=== PATIENT | female | born 1995 ===

== ENCOUNTER 2021-05-04 07:48 | Inpatient (IN) | payer MEDICAID, OTHER ==
[~2021-05-04] VITALS: Ht 155 cm; Wt 62.0 kg
[2021-05-04 07:58] VITALS: BP 133/88
[2021-05-04] MEDS ORDERED: D5 LR IV SOLUTION 1,000 ML IV ONE (08:06)
[2021-05-04] MEDS ORDERED: OXYTOCIN PRE-MIX DRIP 500 ML IV ONE (08:06)
[2021-05-04 08:25] VITALS: BP 116/66
[2021-05-04] MEDS ORDERED: LIDOCAINE/EPI 2% 1:200,00 (XYLOCAINE) 10 ML VIAL ONE (08:27)
[2021-05-04 08:40] VITALS: BP 129/78
[2021-05-04] MEDS ORDERED: D5 LR IV SOLUTION 1,000 ML IV SCH (08:45)
[2021-05-04] MEDS ORDERED: PREN-142 PO (08:50)
[2021-05-04 08:51] LABS: BASOPHILS % (AUTO) 0 % (0-10); EOSINOPHILS # (AUTO) 0.1 10^3/uL (0.0-0.3); EOSINOPHILS % (AUTO) 1 % (0-10); HEMATOCRIT 37 % (35-52); HEMOGLOBIN 13.1 g/dL (11.5-16.0); LYMPHOCYTES # (AUTO) 1.6 10^3/uL (1.0-4.0); LYMPHOCYTES % (AUTO) 15 % (12-44); MEAN CORPUSCULAR HEMOGLOBIN 31 pg (25-34); MEAN CORPUSCULAR HGB CONC 36 g/dL (32-36); MEAN CORPUSCULAR VOLUME 87 fL (80-99); MEAN PLATELET VOLUME 11.7 fL (9.0-12.2); MONOCYTES # (AUTO) 0.5 10^3/uL (0.0-1.0); MONOCYTES % (AUTO) 5 % (0-12); NEUTROPHILS # (AUTO) 8.4 10^3/uL (1.8-7.8); NEUTROPHILS % (AUTO) 79 % (42-75); PLATELET COUNT 226 10^3/uL (130-400); WHITE BLOOD COUNT 10.6 10^3/uL (4.3-11.0)
--- NOTE | 2021-05-04 08:51 | History & Physical-OB ---
OB - Chief Complaint & HPI Date/Time Date of Admission: Date of Admission: May 04, 2021 at 08:44 Date seen by a Provider: May 04, 2021 Time Seen by a Provider: 08:15 Chief Complaint/History OB-Reason for Admission/Chief: Onset of Labor Hx : 2 Hx Para: 1 Expected Date of Delivery: May 18, 2021 Gestational Age in Weeks: 38 Gestational Age in Days: 0 History of Labs A+, antibody neg, RI. HIV/HepB/RPR NR. GC/chlamydia neg. 1 hour glucola nml. GBS neg. 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) Obstetrical Complications: None Medical Complications: None Obstetrical History Hx : 2 Hx Para: 1 Hx # Term Pregnancies: 1 Hx # Pregnancies: 0 Number of Living Children: 1 Hx Termination: No Hx Multiple Gestation: No Hx Ectopic : No Hx Stillbirth: No Hx Complication: No Hx Induced Hypertens: No Hx Maternal Gestational Diabet: No Hx Hemorrhage: No Delivery History Hx Dystocia: No Hx Forceps Assisted Delivery: No Hx Vacuum Extraction Assisted: No Hx Placenta Abnormality: No Hx Distress: No Hx Large For Gestational Age I: No Hx Small for Gestational Age I: No Hx Section: No Hx Vaginal Delivery Post C-Sec: No Hx Blood Disorders: No Adverse Rxn to Tranfusion: No Patient Past Medical History PMHx: Denies SurgHx: Denies Social History/Family History Alcohol Use: Denies Use Recreational Drug Use: No Smoking Cessation: Never smoker Immunizations Influenza Vaccine Up-to-Date: No; Not Current Tetanus Booster (TDap): Less than 5yrs (04/26/21) Rubella: immune RPR/VDRL: Negative GBS Status: Negative HBsAG: Negative OB - Admission Exam Physical Exam HEENT: NCAT Abdomen: Non tender Cervical Dilatation: 10cm Effacement: 100% Station: +2 Membranes: Intact OB - Assessment/Plan/Diagnosis Assessment Admission Dx Term intrauterine at 38 weeks gestation Spontaneous onset of active labor GBS negative Rubella immune Possible IUGR Admission Status: Inpatient Order (span 2 midnights) Reason for Inpatient Admission: Labor, delivery and course Plan Plan: Expectant Management KATHY MAYO MD May 04, 2021 08:51
[2021-05-04 08:55] VITALS: BP 127/61
--- NOTE | 2021-05-04 08:56 | OB Labor & Delivery Record ---
Vag Delivery Note Vag Delivery Note Date of Delivery: 05/04/21 Preoperative Diagnosis: Karolyn Vergara is a (25 /Para 2 / 1,Gestational Age (wks)38with 0 days Postoperative Diagnosis: Same Surgeon: KATHY MAYO Anesthesia: None Delivery Type: Findings: Viable female , apgars 9/9, weight 5#6 Lacerations: left periurethral, second degree perineal Intact placenta with 3 vessel cord. No nuchal cord, body cord or shoulder dystocia Estimated Blood Loss: 150 ml Complications: None Condition: Stable Description of Procedure: The patient is a 25 year old female who presented at complete cervical dilation. She was admitted and informed consent was obtained. Her labor course was remarkable for precipitous delivery. After rupture of a bulging bag, delivered essentially immediately. She was then set up for delivery. The infant's head was delivered atraumatically in the OA position. The shoulders and remainder of the infant's body were then d elivered without difficulty. Upon delivery, the infant was vigorous and placed on maternal abdomen. After a delay, the cord was doubly clamped and cut and the infant was handed off to the pediatric staff. An intact placenta with 3-vessel cord delivered via Mary and there was found to be minimal bleeding.~ Vigorous fundal massage was performed and the fundus was found to be firm. IV oxytocin was given. Examination of the vagina and perineum revealed a left perirurethral laceration that was hemostatic and well approximated, not requiring repair and a second degree perineal laceration repaired in the usual fashion with 3-0 vicryl rapide suture. Following the repair, sponge, instrument and needle counts were correct. Mom and baby were both in stable condition in the labor suite. Vitals - Labs Labs Laboratory Tests 05/04/21 08:11: White Blood Count 10.6, Red Blood Count 4.21, Hemoglobin 13.1, Hematocrit 37, Mean Corpuscular Volume 87, Mean Corpuscular Hemoglobin 31, Mean Corpuscular Hemoglobin Concent 36, Red Cell Distribution Width 12.7, Platelet Count 226, Mean Platelet Volume 11.7, Immature Granulocyte % (Auto) 1, Neutrophils (%) (Auto) 79H, Lymphocytes (%) (Auto) 15, Monocytes (%) (Auto) 5, Eosinophils (%) (Auto) 1, Basophils (%) (Auto) 0, Neutrophils # (Auto) 8.4H, Lymphocytes # (Auto) 1.6, Monocytes # (Auto) 0.5, Eosinophils # (Auto) 0.1, Basophils # (Auto) 0.0, Immature Granulocyte # (Auto) 0.1 KATHY MAYO MD May 04, 2021 08:56
[2021-05-04] MEDS ORDERED: OXYTOCIN PRE-MIX DRIP 500 ML IV SCH (09:30)
[2021-05-04] MEDS: DOCUSATE SODIUM 100 MG (COLACE) CAP PO SCH ×2 (09:30→21:04)
[2021-05-04] MEDS ORDERED: BENZOCAINE/MENTHOL (DERMOPLAST) 56 ML CAN TP PRN (09:30)
[2021-05-04] MEDS ORDERED: WITCH HAZEL(TUCKS) 40 EA JAR TOP PRN (09:30)
[2021-05-04] MEDS: IBUPROFEN 600 MG (MOTRIN) TAB PO SCH ×2 (10:49→17:46)
[2021-05-04] MEDS ORDERED: CATHETER FLUSH 10 ML SYR IV SCH ×2 (14:00)
[2021-05-04 14:04] VITALS: BP 91/52
[2021-05-04 21:01] VITALS: BP 100/58
[2021-05-05 00:16] VITALS: BP 82/50
[2021-05-05] MEDS: IBUPROFEN 600 MG (MOTRIN) TAB PO SCH ×5 (00:18→23:17)
[2021-05-05 04:03] VITALS: BP 103/56
[2021-05-05 06:57] LABS: BASOPHILS % (AUTO) 0 % (0-10); EOSINOPHILS # (AUTO) 0.1 10^3/uL (0.0-0.3); EOSINOPHILS % (AUTO) 1 % (0-10); HEMATOCRIT 35 % (35-52); HEMOGLOBIN 12.2 g/dL (11.5-16.0); LYMPHOCYTES # (AUTO) 2.4 10^3/uL (1.0-4.0); LYMPHOCYTES % (AUTO) 21 % (12-44); MEAN CORPUSCULAR HEMOGLOBIN 31 pg (25-34); MEAN CORPUSCULAR HGB CONC 35 g/dL (32-36); MEAN CORPUSCULAR VOLUME 89 fL (80-99); MEAN PLATELET VOLUME 11.9 fL (9.0-12.2); MONOCYTES # (AUTO) 0.7 10^3/uL (0.0-1.0); MONOCYTES % (AUTO) 6 % (0-12); NEUTROPHILS # (AUTO) 8.3 10^3/uL (1.8-7.8); NEUTROPHILS % (AUTO) 71 % (42-75); PLATELET COUNT 216 10^3/uL (130-400); WHITE BLOOD COUNT 11.7 10^3/uL (4.3-11.0)
[2021-05-05] MEDS: DOCUSATE SODIUM 100 MG (COLACE) CAP PO SCH ×2 (10:20→23:17)
[2021-05-05 18:09] VITALS: BP 106/54
--- NOTE | 2021-05-05 21:28 | Postpartum Progress Note ---
Note Note Day # 1 Subjective: Patient is without complaints. Ambulating, voiding. Tolerating a regular diet without nausea or vomiting. Normal lochia. Pain is well controlled with oral pain medications. Breast and Bottle feeding. Objective: Physical Exam: General - Alert and oriented, no apparent distress Abdomen - Soft, appropriately tender to palpation, non-distended, fundus firm at umbilicus Extremities - no edema, negative Michele's bilaterally Assessment: 25 yo G2 now P2 post- day # 1, status post uncomplicated precipitus vaginal delivery. Recovering well, hemodynamically stable Plan: Routine care. Encourage breast feeding. Encourage ambulation. Ferrous sulfate supplementation. Plan for discharge tomorrow with f.u with Juancho Vitals - Labs Vital Signs - I&O Vital Signs Date Time Temp Pulse Resp B/P (MAP) Pulse Ox O2 Delivery O2 Flow Rate FiO2 05/05/21 18:09 36.7 81 16 106/54 (71) 99 Room Air 05/05/21 04:03 36.7 61 16 103/56 (72) 97 Room Air 05/05/21 00:16 36.5 60 16 82/50 (61) 97 Room Air I & O 05/05/21 07:00 Intake Total 500 ml Balance 500 ml Labs Laboratory Tests 05/05/21 06:19: White Blood Count 11.7H, Red Blood Count 3.93, Hemoglobin 12.2, Hematocrit 35, Mean Corpuscular Volume 89, Mean Corpuscular Hemoglobin 31, Mean Corpuscular Hemoglobin Concent 35, Red Cell Distribution Width 13.0, Platelet Count 216, Mean Platelet Volume 11.9, Immature Granulocyte % (Auto) 1, Neutrophils (%) (Auto) 71, Lymphocytes (%) (Auto) 21, Monocytes (%) (Auto) 6, Eosinophils (%) (Auto) 1, Basophils (%) (Auto) 0, Neutrophils # (Auto) 8.3H, Lymphocytes # (Auto) 2.4, Monocytes # (Auto) 0.7, Eosinophils # (Auto) 0.1, Basophils # (Auto) 0.0, Immature Granulocyte # (Auto) 0.1 JAZMIN HERNANDEZ MD May 05, 2021 21:28
[2021-05-05 23:17] VITALS: BP 102/59
[2021-05-06] MEDS: IBUPROFEN 600 MG (MOTRIN) TAB PO SCH ×2 (06:07→12:33)
[2021-05-06 06:10] VITALS: BP 105/55
[2021-05-06 08:12] VITALS: BP 97/58
[2021-05-06] MEDS: DOCUSATE SODIUM 100 MG (COLACE) CAP PO SCH (10:14)
[2021-05-06] MEDS ORDERED: IBUP-844 PO (10:45)
--- NOTE | 2021-05-06 10:47 | Short Stay Summary ---
Discharge Summary Hospital Course Final Diagnosis: see hospital course Hospital Course Date of Admission: May 04, 2021 at 08:44 Admission Diagnosis : 1. at 38 week with spontaneous onset of labor Family Physician/Provider: [facility] Date of Discharge: 05/06/21 Discharge Diagnosis: 1. at 38 week with spontaneous onset of labor s/p precipitous on 05/04/21 2. L periurethral and 2nd degree perineal laceration repair Hospital Course: Routine course Labs and Pending Lab Test: Laboratory Tests 05/04/21 08:11: White Blood Count 10.6, Red Blood Count 4.21, Hemoglobin 13.1, Hematocrit 37, Mean Corpuscular Volume 87, Mean Corpuscular Hemoglobin 31, Mean Corpuscular Hemoglobin Concent 36, Red Cell Distribution Width 12.7, Platelet Count 226, Mean Platelet Volume 11.7, Immature Granulocyte % (Auto) 1, Neutrophils (%) (Auto) 79H, Lymphocytes (%) (Auto) 15, Monocytes (%) (Auto) 5, Eosinophils (%) (Auto) 1, Basophils (%) (Auto) 0, Neutrophils # (Auto) 8.4H, Lymphocytes # (Auto) 1.6, Monocytes # (Auto) 0.5, Eosinophils # (Auto) 0.1, Basophils # (Auto) 0.0, Immature Granulocyte # (Auto) 0.1 05/05/21 06:19: White Blood Count 11.7H, Red Blood Count 3.93, Hemoglobin 12.2, Hematocrit 35, Mean Corpuscular Volume 89, Mean Corpuscular Hemoglobin 31, Mean Corpuscular Hemoglobin Concent 35, Red Cell Distribution Width 13.0, Platelet Count 216, Mean Platelet Volume 11.9, Immature Granulocyte % (Auto) 1, Neutrophils (%) (Auto) 71, Lymphocytes (%) (Auto) 21, Monocytes (%) (Auto) 6, Eosinophils (%) (Auto) 1, Basophils (%) (Auto) 0, Neutrophils # (Auto) 8.3H, Lymphocytes # (Auto) 2.4, Monocytes # (Auto) 0.7, Eosinophils # (Auto) 0.1, Basophils # (Auto) 0.0, Immature Granulocyte # (Auto) 0.1 Home Meds Active Reported Vitamin Tablet ( Vit No.124/Iron/FA) 1 Each Tablet 1 Each PO Assessment/Pt Instructions Follow up with Dr. Dawkins in 6 weeks Discharge Instructions Discharge Diet: No Restrictions Discharge Physical Examination General Appearance: Alert, Oriented X3, Cooperative Psych/Mental Status: Mood NL Allergies: Coded Allergies: No Known Drug Allergies (Unverified , 05/04/21) Discharge Summary Date of Admission May 04, 2021 at 08:44 Date of Discharge JOVON JOHNSON DO May 06, 2021 10:47
[2021-05-06 12:45] VITALS: BP 97/58
== END 2021-05-06 12:45 | disposition home or self-care (01) | DRG 807 ==
LOC: WSo 07:48 → LDRP 07:49
PROVIDERS: ADMIT Family Medicine; ATTEND Family Medicine
PROC: 10E0XZZ Delivery of Products of Conception, External Approach (ICD-10-PCS; principal; 2021-05-04)
PROC: 0KQM0ZZ Repair Perineum Muscle, Open Approach (ICD-10-PCS; 2021-05-04)
PROC: 0UQMXZZ Repair Vulva, External Approach (ICD-10-PCS; 2021-05-04)
DX: O62.3 Precipitate labor (principal); Z37.0 Single live birth; Z3A.38 38 weeks gestation of pregnancy; O70.1 Second degree perineal laceration during delivery; O71.82 Other specified trauma to perineum and vulva
CPT/HCPCS: 36415; 85025; 86850; 86900; 86901; 99212

== ENCOUNTER 2022-03-14 08:28 | Emergency (ER) | payer MEDICAID ==
[~2022-03-14] VITALS: Ht 152.4 cm; Wt 56.6 kg
[~2022-03-14 08:28] MED LIST: IBUP-844 PO; PREN-142 PO
--- NOTE | 2022-03-14 08:59 | ED Cardiac General ---
History of Present Illness General Chief Complaint: Cardiac/General Problems Nursing Triage Note: PT AMB TO RM 6. PT STATES SHE HAS AN IMPLANTED HEART MONITOR AND WAS CALLED AND TOLD TO COME IN TO ER FOR FURTHER EVALUATION. DENIES PAIN. Source: patient, other (RN at [facility]) Exam Limitations: language barrier History of Present Illness Date Seen by Provider: Mar 14, 2022 Time Seen by Provider: 08:45 Initial Comments 26yo female comes to the ER at the request of her cardiology clinic in [place] (where she recently moved from). She is a poor historian, therefore I spoke with Marla Syed, RN in the [facility] in [place], [place]. [phone] ext [phone]. 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 Corporate Financial Analyst - Dr Cheatham. The patient did not follow up after ICD placement and the nurse states they did not know she moved permanently to [place]. Apparently her remote monitoring has issued notifications to the device clinic. She has been showing a "high RV lead impedance of >3000" and a significant amount of noise in the ventricular lead. She is having short "v-v" intervals. She has had 4 true nonsustained events of VT (<10 beats). She has not suffered a shock yet. Marla tells me that Karolyn has had cardiac cath recently with a normal ef and clean coronary arteries. She did confirm that Karolyn was discharged on no medications. Karolyn is currently verbalizing NO complaints. Timing/Duration: 1/2 hour Prior CP/Workup: other (pacer defib placement) NTG SL WAX ENGRAVER: No ASA po WAX ENGRAVER: No Associated Systoms: Denies Symptoms Allergies and Home Medications Allergies Coded Allergies: No Known Drug Allergies (Unverified , 05/04/21) Patient Home Medication List Home Medication List Reviewed: Yes Ibuprofen (Ibu) 600 Mg Tablet, 600 MG PO Q6HR PRN for CRAMPS Prescribed by: JOVON JOHNSON on 05/06/21 1045 Vit No.124/Iron/FA ( Vitamin Tablet) 1 Each Tablet, 1 EACH PO, (Reported) Entered as Reported by: KATHY MAYO on 05/04/21 0850 Review of Systems Review of Systems Constitutional: see HPI EENTM: No Symptoms Reported Respiratory: No Symptoms Reported Cardiovascular: No Symptoms Reported Gastrointestinal: No Symptoms Reported Musculoskeletal: no symptoms reported Skin: no symptoms reported Psychiatric/Neurological: No Symptoms Reported All Other Systems Reviewed Negative Unless Noted: Yes Past Mfrwqpa-Fenxpi-Oxplmg Hx Patient Social History Tobacco Use?: No Use of E-Cig and/or Vaping dev: No Substance use?: No Alcohol Use?: No Pt feels they are or have been: No Immunizations Up To Date Tetanus Booster (TDap): Less than 5yrs Past Medical History Adverse Reaction/Blood Tranf: No Physical Exam Vital Signs Vital Signs - First Documented 03/14/22 08:37 Pulse 80 Resp 18 B/P (MAP) 109/78 (88) Pulse Ox 100 O2 Delivery Room Air Capillary Refill : Less Than 3 Seconds Height, Weight, BMI Height: '" Weight: lbs. oz. kg; 24.00 BMI Method: General Appearance: No Apparent Distress, WD/WN HEENT: PERRL/EOMI Neck: Normal Inspection Respiratory: Lungs Clear, Normal Breath Sounds, No Accessory Muscle Use, No R espiratory Distress, Other (wound site to left upper chest looks good) Cardiovascular: Regular Rate, Rhythm, Other (occasional extra systoles heard) Gastrointestinal: Non Tender, Soft Extremity: Normal Capillary Refill, Normal Inspection, Normal Range of Motion, No Calf Tenderness Neurologic/Psychiatric: Alert, Oriented x3, No Motor/Sensory Deficits, Normal Mood/Affect Skin: Normal Color, Warm/Dry Progress/Results/Core Measures Results/Orders Lab Results Laboratory Tests Test 03/14/22 08:53 Range/Units White Blood Count 7.2 4.3-11.0 10^3/uL Red Blood Count 4.79 3.80-5.11 10^6/uL Hemoglobin 14.0 11.5-16.0 g/dL Hematocrit 40 35-52 % Mean Corpuscular Volume 83 80-99 fL Mean Corpuscular Hemoglobin 29 25-34 pg Mean Corpuscular Hemoglobin Concent 35 32-36 g/dL Red Cell Distribution Width 12.0 10.0-14.5 % Platelet Count 304 130-400 10^3/uL Mean Platelet Volume 10.8 9.0-12.2 fL Immature Granulocyte % (Auto) 0 % Neutrophils (%) (Auto) 58 42-75 % Lymphocytes (%) (Auto) 34 12-44 % Monocytes (%) (Auto) 6 0-12 % Eosinophils (%) (Auto) 2 0-10 % Basophils (%) (Auto) 0 0-10 % Neutrophils # (Auto) 4.2 1.8-7.8 10^3/uL Lymphocytes # (Auto) 2.4 1.0-4.0 10^3/uL Monocytes # (Auto) 0.4 0.0-1.0 10^3/uL Eosinophils # (Auto) 0.1 0.0-0.3 10^3/uL Basophils # (Auto) 0.0 0.0-0.1 10^3/uL Immature Granulocyte # (Auto) 0.0 0.0-0.1 10^3/uL Sodium Level 135 135-145 MMOL/L Potassium Level 3.2 L 3.6-5.0 MMOL/L Chloride Level 102 98-107 MMOL/L Carbon Dioxide Level 24 21-32 MMOL/L Anion Gap 9 5-14 MMOL/L Blood Urea Nitrogen 7 7-18 MG/DL Creatinine 0.72 0.60-1.30 MG/DL Estimat Glomerular Filtration Rate 119 BUN/Creatinine Ratio 10 Glucose Level 135 H 70-105 MG/DL Calcium Level 8.7 8.5-10.1 MG/DL Magnesium Level 2.1 1.6-2.4 MG/DL My Orders Orders - TERRA DUPREE MD Ed Iv/Invasive Line Start (03/14/22 08:50) Cbc With Automated Diff (03/14/22 08:50) Basic Metabolic Panel (03/14/22 08:50) Magnesium (03/14/22 08:50) Ekg Tracing (03/14/22 08:50) Chest 1 View, Ap/Pa Only (03/14/22 08:50) Vital Signs/I&O 03/14/22 08:37 Pulse 80 Resp 18 B/P (MAP) 109/78 (88) Pulse Ox 100 O2 Delivery Room Air Blood Pressure Mean: 88 Progress Progress Note #1: Time: 10:30 Progress Note Discussed with Dr Lopez at 1008. He states that the patient would need an quality assurance specialist - he recc transfer today as the impedance being greater than 300 would indicate lead malfunction and increase the probability of inappropriate shock. we do not have the capability to treat or fix her pacer/ICD.. [facility]. I spoke with [facility] - no cardiac bed availability at this time. At [address] Benites at [facility] - she indicated that she would need to speak with their quality assurance specialist and see if this warranted an emergent transfer. She will call me back. Progress Note #2: Time: 11:35 Progress Note Multiple phone calls were made to various facilities including [facility] who has no cardiac bed availability at this time, also [facility] I spoke with Dr. Bean who stated that when she talked to their publishing director Dr. Mccray, that this could wait for outpatient follow-up. I also spoke with Dr.Decorti JOSE who stated that she would need outpatient follow-up as soon as possible because the device may malfunction, not since correctly not shot correctly etc. I did speak with Dr. Hernández himself the publishing director at [facility] in [facility]. He indicated to me that yes she needed follow-up very quickly and that he would be happy to see her in clinic tomorrow. He recommended that the patient call his nurse Paula Caputo to schedule the appointment for tomorrow. I communicated all of this information to the patient. She initially indicated that she would not be able to go to clinic tomorrow however I a stressed the importance of follow-up as it could be a life-threatening situation. I told her that if her heart went into an abnormal rhythm and her device did not shock appropriately that she could from this. Her significant other is at the bedside and stated that he would make sure she got to clinic tomorrow. I will type up all of the discharge instructions very clearly so that she knows who to talk to and when to follow-up and where to follow-up. All questions were sought and answered. Initial ECG Impression Date: Mar 14, 2022 Initial ECG Impression Time: 08:59 Initial ECG Rate: 75 Initial ECG Rhythm: Normal Sinus Comment atrial Paced; frequent PVC Diagnostic Imaging Diagonstic Imaging: Xray Plain Films/CT/US/NM/MRI: chest Comments [facility]. [place], [place] NAME: KAROLYN FELTON [facility] REC#: [id number] PT STATUS: REG ER : 1995 PHYSICIAN: TERRA DUPREE MD ADMIT DATE: 03/14/22/ER Draft Date of Exam:03/14/22 CHEST 1 VIEW, AP/PA ONLY INDICATION: Respiratory distress FINDINGS: Heart size and configuration unremarkable. Cardiac conduction device present with its thickened ventricular lead more proximal than typically projecting. No pneumothorax. No free air beneath the diaphragm. No findings of lead fracture. IMPRESSION: No acute appearing cardiopulmonary abnormality. Dictated on workstation # [id number] Dict: 03/14/2233 Trans: 03/14/2240 [facility] [id number] Interpreted by: TWYLA CORREIA Electronically signed by: Departure Impression Primary Impression: Disorder of defibrillator function Qualified Codes: T82.198A - Other mechanical complication of other cardiac electronic device, initial encounter Disposition: 01 HOME, SELF-CARE Condition: Stable Departure-Patient Inst. Decision time for Depature: 11:38 Referrals: KATHY MAYO MD (PCP/Family) Primary Care Physician Patient Instructions: Automatic Cardioverter Defibrillator Implantation Add. Discharge Instructions: YOU NEED TO CALL [facility] IN [place] *TODAY* TO SCHEDULE A VISIT WITH THE HEART DOCTOR TOMORROW. SPEAK WITH : PAULA CAPUTO RN (THE NURSE) FOR DR. AVILEZ LET THEM KNOW WHEN YOU CALL THAT HE SAID HE WOULD SEE YOU IN HIS CLINIC TOMORROW 03-15-22. YOU ABSOLUTELY MUST MAKE THIS APPOINTMENT, BECAUSE YOUR DEVICE MAY NOT WORK RIGHT TO SHOCK YOUR HEART OUT OF AN ABNORMAL PATTERN. THIS COULD RESULT IN YOUR . IF YOU HAVE SUDDEN PAIN, SHORTNESS OF BREATH, IF THE DEVICE SHOCKS YOU BEFORE THEN, PLEASE COME BACK TO THE EMERGENCY DEPARTMENT. [facility] - DR AVILEZ [address] [address] [address] TERRA DUPREE MD Mar 14, 2022 08:59
[2022-03-14 09:02] LABS: BASOPHILS % (AUTO) 0 % (0-10); EOSINOPHILS # (AUTO) 0.1 10^3/uL (0.0-0.3); EOSINOPHILS % (AUTO) 2 % (0-10); HEMATOCRIT 40 % (35-52); LYMPHOCYTES # (AUTO) 2.4 10^3/uL (1.0-4.0); LYMPHOCYTES % (AUTO) 34 % (12-44); MEAN CORPUSCULAR HEMOGLOBIN 29 pg (25-34); MEAN CORPUSCULAR HGB CONC 35 g/dL (32-36); MEAN CORPUSCULAR VOLUME 83 fL (80-99); MEAN PLATELET VOLUME 10.8 fL (9.0-12.2); MONOCYTES # (AUTO) 0.4 10^3/uL (0.0-1.0); MONOCYTES % (AUTO) 6 % (0-12); NEUTROPHILS # (AUTO) 4.2 10^3/uL (1.8-7.8); NEUTROPHILS % (AUTO) 58 % (42-75); PLATELET COUNT 304 10^3/uL (130-400); WHITE BLOOD COUNT 7.2 10^3/uL (4.3-11.0)
[2022-03-14 09:17] LABS: POTASSIUM 3.2 MMOL/L (3.6-5.0)
[2022-03-14 09:18] LABS: CALCIUM 8.7 MG/DL (8.5-10.1)
[2022-03-14 09:22] LABS: CREATININE SERUM 0.72 MG/DL (0.60-1.30)
[2022-03-14 09:24] LABS: MAGNESIUM 2.1 MG/DL (1.6-2.4)
--- NOTE | 2022-03-14 09:40 | Diagnostic Imaging Report ---
INDICATION: Respiratory distress FINDINGS: Heart size and configuration unremarkable. Cardiac conduction device present with its thickened ventricular lead more proximal than typically projecting. No pneumothorax. No free air beneath the diaphragm. No findings of lead fracture. IMPRESSION: No acute appearing cardiopulmonary abnormality. Dictated by: Dictated on workstation # [id number]
[2022-03-14 11:54] VITALS: BP 105/70
== END 2022-03-14 11:54 | disposition home or self-care (01) ==
LOC: EDUNIT# 08:28 → ER 08:32
DX: T82.198A Other mechanical complication of other cardiac electronic device, initial encounter (principal)
CPT/HCPCS: 36415; 71045; 80048; 83735; 85025; 93005

== ENCOUNTER 2022-05-28 08:51 | Inpatient (IN) | payer BC, MEDICAID ==
[~2022-05-28] VITALS: Ht 160 cm; Wt 64.0 kg
[2022-05-28] MEDS ORDERED: ACETAMINOPHEN 500 MG TAB (TYLENOL) PO PRN (09:15)
[2022-05-28 09:17] LABS: BASOPHILS % (AUTO) 0 % (0-10); EOSINOPHILS % (AUTO) 0 % (0-10); HEMATOCRIT 40 % (35-52); HEMOGLOBIN 14.4 g/dL (11.5-16.0); LYMPHOCYTES # (AUTO) 0.8 10^3/uL (1.0-4.0); LYMPHOCYTES % (AUTO) 6 % (12-44); MEAN CORPUSCULAR HEMOGLOBIN 30 pg (25-34); MEAN CORPUSCULAR HGB CONC 36 g/dL (32-36); MEAN CORPUSCULAR VOLUME 83 fL (80-99); MEAN PLATELET VOLUME 11.1 fL (9.0-12.2); MONOCYTES # (AUTO) 0.7 10^3/uL (0.0-1.0); MONOCYTES % (AUTO) 5 % (0-12); NEUTROPHILS # (AUTO) 13.4 10^3/uL (1.8-7.8); NEUTROPHILS % (AUTO) 89 % (42-75); PLATELET COUNT 212 10^3/uL (130-400); WHITE BLOOD COUNT 15.1 10^3/uL (4.3-11.0)
[2022-05-28 09:34] LABS: CLARITY,URINE SL CLOUDY; COLOR,URINE YELLOW; GLUCOSE, URINE (UA) NEGATIVE (NEGATIVE); KETONES,URINE 1+ (NEGATIVE); LEUKOCYTE ESTERASE ,URINE 2+ (NEGATIVE); NITRITE,URINE NEGATIVE (NEGATIVE); PROTEIN,URINE TRACE (NEGATIVE)
[2022-05-28 09:35] LABS: ALBUMIN 4.3 GM/DL (3.2-4.5); CALCIUM 8.8 MG/DL (8.5-10.1); CREATININE SERUM 0.96 MG/DL (0.60-1.30); POTASSIUM 3.4 MMOL/L (3.6-5.0); TOTAL PROTEIN 8.8 GM/DL (6.4-8.2)
[2022-05-28 09:36] LABS: BAND NEUTROPHILS 2 %; LYMPHOCYTES % (MANUAL) 12 %; MONOCYTES % (MANUAL) 5 %; NEUTROPHILS % (MANUAL) 81 %; RBC MORPH NORMAL
[2022-05-28] MEDS: LACTATED RINGERS 1,000 ML IV SCH ×2 (09:43→11:08)
--- NOTE | 2022-05-28 09:44 | Diagnostic Imaging Report ---
INDICATION: Chills and shortness of air. TIME OF EXAM: 9:27 AM. COMPARISON: Correlation is made with prior chest of 03/14/2022. FINDINGS: Cardiac defibrillator remains in place. Heart size is normal. Lungs are clear. No infiltrates are detected. There is no effusion or pneumothorax. IMPRESSION: No acute cardiopulmonary process is detected. Dictated by: Dictated on workstation # [id number]
[2022-05-28 09:49] LABS: AMORPHOUS SEDIMENT,UR FEW AMOR URATES /LPF; BACTERIA,URINE MODERATE /HPF; BILIRUBIN,URINE NEGATIVE (NEGATIVE)
--- NOTE | 2022-05-28 10:15 | ED Cardiac General ---
History of Present Illness General Chief Complaint: Cardiac/General Problems Stated Complaint: HEART PALPITATIONS Nursing Triage Note: PT PRESENTS TO ED VIA POV FROM HOME WITH COMPLAINTS OF NOT FEELING WELL SINCE LAST NIGHT. PT REPORTS CHILLS, [place], INCREASED SOA. PT STATES SHE HAD 2 EPISODES OF CP THIS AM LASTING APROX 10 MIN. Source: patient, family Exam Limitations: no limitations History of Present Illness Date Seen by Provider: May 28, 2022 Time Seen by Provider: 08:50 Initial Comments 26-year-old female presents to the emergency department today for episodes of palpitations. She had 2 episodes this morning lasted about 5 to 10 minutes each. She has a complicated cardiac history with history of prolonged QT syndrome status post pacer, defibrillator placement for frequent episodes of ventricular tachycardia and syncope. She has not had any syncopal episodes but did feel lightheaded when she had her palpitations. Notably few months ago she was seen here and had high impedance in one of her leads. She follows with wire stretcher at [facility], Dr. Hernández apparently fix the problem without having to do any invasive surgery or lead changes. On arrival she is febrile though she endorses no recent illness. Allergies and Home Medications Allergies Coded Allergies: No Known Drug Allergies (Unverified , 05/04/21) Patient Home Medication List Home Medication List Reviewed: Yes Ibuprofen (Ibu) 600 Mg Tablet, 600 MG PO Q6HR PRN for CRAMPS Prescribed by: JOVON JOHNSON on 05/06/21 1045 Vit No.124/Iron/FA ( Vitamin Tablet) 1 Each Tablet, 1 EACH PO, (Reported) Entered as Reported by: KATHY MAYO on 05/04/21 0850 Review of Systems Review of Systems Constitutional: dizziness EENTM: No Symptoms Reported Respiratory: No Symptoms Reported Cardiovascular: Palpitations Gastrointestinal: No Symptoms Reported Genitourinary: No Symptoms Reported Musculoskeletal: no symptoms reported Skin: no symptoms reported Psychiatric/Neurological: No Symptoms Reported Endocrine: No Symptoms Reported Hematologic/Lymphatic: No Symptoms Reported Past Hmpsjrt-Zmuogs-Tmzolr Hx Patient Social History Tobacco Use?: No Substance use?: No Alcohol Use?: No Pt feels they are or have been: No Immunizations Up To Date Tetanus Booster (TDap): Less than 5yrs Past Medical History Surgery/Hospitalization HX: pacemaker Adverse Reaction/Blood Tranf: No Family Medical History Reviewed Nursing Family Hx No Pertinent Family Hx Physical Exam Vital Signs Vital Signs - First Documented 05/28/22 08:58 Temp 38.4 Pulse 123 Resp 20 B/P (MAP) 128/66 (86) Pulse Ox 97 Capillary Refill : Less Than 3 Seconds Height, Weight, BMI Height: '" Weight: lbs. oz. kg; 22.00 BMI Method: General Appearance: No Apparent Distress, WD/WN HEENT: PERRL/EOMI, Normal ENT Inspection, Pharynx Normal Neck: Normal Inspection, Non Tender, Supple Respiratory: Chest Non Tender, Lungs Clear, Normal Breath Sounds, No Accessory Muscle Use, No Respiratory Distress Cardiovascular: No Murmur, Normal Peripheral Pulses, Tachycardia Gastrointestinal: Normal Bowel Sounds, No Organomegaly, Non Tender, Soft Extremity: Normal Capillary Refill, Normal Inspection, Normal Range of Motion, Non Tender, No Calf Tenderness Neurologic/Psychiatric: Alert, Oriented x3, No Motor/Sensory Deficits Skin: Normal Color, Warm/Dry Lymphatic: No Adenopathy Focused Exam Lactate Level 05/28/22 09:07: Lactic Acid Level 1.55 Lactic Acid Level Laboratory Tests Test 05/28/22 09:07 Lactic Acid Level 1.55 MMOL/L (0.50-2.00) Progress/Results/Core Measures Results/Orders Lab Results Laboratory Tests Test 05/28/22 09:05 05/28/22 09:07 05/28/22 09:26 Range/Units Influenza Type A (RT-PCR) Not Detected Not Detecte Influenza Type B (RT-PCR) Not Detected Not Detecte SARS-CoV-2 RNA (RT-PCR) Detected H Not Detecte White Blood Count 15.1 H 4.3-11.0 10^3/uL Red Blood Count 4.83 3.80-5.11 10^6/uL Hemoglobin 14.4 11.5-16.0 g/dL Hematocrit 40 35-52 % Mean Corpuscular Volume 83 80-99 fL Mean Corpuscular Hemoglobin 30 25-34 pg Mean Corpuscular Hemoglobin Concent 36 32-36 g/dL Red Cell Distribution Width 12.3 10.0-14.5 % Platelet Count 212 130-400 10^3/uL Mean Platelet Volume 11.1 9.0-12.2 fL Immature Granulocyte % (Auto) 0 % Neutrophils (%) (Auto) 89 H 42-75 % Lymphocytes (%) (Auto) 6 L 12-44 % Monocytes (%) (Auto) 5 0-12 % Eosinophils (%) (Auto) 0 0-10 % Basophils (%) (Auto) 0 0-10 % Neutrophils # (Auto) 13.4 H 1.8-7.8 10^3/uL Lymphocytes # (Auto) 0.8 L 1.0-4.0 10^3/uL Monocytes # (Auto) 0.7 0.0-1.0 10^3/uL Eosinophils # (Auto) 0.0 0.0-0.3 10^3/uL Basophils # (Auto) 0.0 0.0-0.1 10^3/uL Immature Granulocyte # (Auto) 0.1 0.0-0.1 10^3/uL Neutrophils % (Manual) 81 % Lymphocytes % (Manual) 12 % Monocytes % (Manual) 5 % Band Neutrophils 2 % Blood Morphology Comment NORMAL Sodium Level 134 L 135-145 MMOL/L Potassium Level 3.4 L 3.6-5.0 MMOL/L Chloride Level 102 98-107 MMOL/L Carbon Dioxide Level 22 21-32 MMOL/L Anion Gap 10 5-14 MMOL/L Blood Urea Nitrogen 10 7-18 MG/DL Creatinine 0.96 0.60-1.30 MG/DL Estimat Glomerular Filtration Rate 84 BUN/Creatinine Ratio 10 Glucose Level 114 H 70-105 MG/DL Lactic Acid Level 1.55 0.50-2.00 MMOL/L Calcium Level 8.8 8.5-10.1 MG/DL Corrected Calcium 8.6 8.5-10.1 MG/DL Magnesium Level 2.0 1.6-2.4 MG/DL Total Bilirubin 1.0 0.1-1.0 MG/DL Aspartate Amino Transf (AST/SGOT) 21 5-34 U/L Alanine Aminotransferase (ALT/SGPT) 15 0-55 U/L Alkaline Phosphatase 82 40-136 U/L Total Protein 8.8 H 6.4-8.2 GM/DL Albumin 4.3 3.2-4.5 GM/DL Urine Color YELLOW Urine Clarity SL CLOUDY Urine pH 6.0 5-9 Urine Specific [place] 1.025 H 1.016-1.022 Urine Protein TRACE H NEGATIVE Urine Glucose (UA) NEGATIVE NEGATIVE Urine Ketones 1+ H NEGATIVE Urine Nitrite NEGATIVE NEGATIVE Urine Bilirubin NEGATIVE NEGATIVE Urine Urobilinogen 2.0 < = 1.0 MG/DL Urine Leukocyte Esterase 2+ H NEGATIVE Urine RBC (Auto) 3+ H NEGATIVE Urine RBC 10-25 H /HPF Urine WBC 10-25 H /HPF Urine Squamous Epithelial Cells 5-10 /HPF Urine Crystals PRESENT H /LPF Urine Amorphous Sediment FEW BRANDEN URATES H /LPF Urine Bacteria MODERATE H /HPF Urine Casts NONE /LPF Urine Mucus SMALL H /LPF Urine Culture Indicated YES Urine Test NEGATIVE NEGATIVE My Orders Orders - JANINE PRIDE DO Cbc With Automated Diff (05/28/22 09:04) Comprehensive Metabolic Panel (05/28/22 09:04) Blood Culture (05/28/22 09:04) Urinalysis (05/28/22 09:04) Chest 1 View, Ap/Pa Only (05/28/22 09:04) Acetaminophen Tablet (Tylenol Tablet) (05/28/22 09:15) Ed Iv/Invasive Line Start (05/28/22 09:04) Lactic Acid Analyzer (05/28/22 09:04) Influenza A And B By Pcr (05/28/22 09:04) Covid 19 Inhouse Test (05/28/22 09:04) Magnesium (05/28/22 09:04) Lactated Ringers (Lr 1000 Ml Iv Solution (05/28/22 09:15) Manual Differential (05/28/22 09:07) Urine Culture (05/28/22 09:26) Ceftriaxone 1 Gm Pre-Mix (Rocephin 1 Gm (05/28/22 10:30) Ed Admission (Communication) (05/28/22 13:51) Medications Given in ED Vital Signs/I&O 05/28/22 08:58 Temp 38.4 Pulse 123 Resp 20 B/P (MAP) 128/66 (86) Pulse Ox 97 Blood Pressure Mean: 86 Departure Communication (Admissions) Patient is initially tachycardic, improved with IV fluid and control for fever. She did have positive for COVID. We interrogated her pacemaker and she had received 3 different corrections. She had 3 episodes of overdrive pacing and 1 defibrillation. He had a [employer] rep, and evaluate for pacemaker. Ultimately it was determined that her ventricular lead has dislodged and is now in her atrium. It is likely providing corrections based on an atrial rate. Review of tracings from her device shows there were no true ventricular dysrhythmias and it was cramping based on an atrial rhythm. With that the rapid shot off her ventricular lead at present. 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 With that is likely not safe to send her home for follow-up. I spoke with cardiology, Dr. Lucas at [facility] who spoke with Dr. Hernández. They attempted to get her transferred there however they are at capacity. He requests we admit her here observation for V. fib and V. tach until they can get a bed at which time she can be transferred there for new device I spoke with Dr. Honeycutt who is in agreement. I spoke with Dr. Mayo who accepts the patient in admission. Impression Primary Impression: Disorder of defibrillator function Qualified Codes: T82.198A - Other mechanical complication of other cardiac e lectronic device, initial encounter Additional Impression: COVID-19 Disposition: 09 ADMITTED INPATIENT Condition: Stable Admissions Decision to Admit Reason: Admit from ER (General) Departure-Patient Inst. Referrals: KATHY MAYO MD (PCP/Family) Primary Care Physician JANINE PRIDE DO May 28, 2022 10:15
[2022-05-28] MEDS ORDERED: cefTRIAXone 1 GM PRE-MIX 50 ML IV ONE (10:30)
[2022-05-28] MEDS ORDERED: NIRMATRELVIR/RITONAVIR (PAXLOVID) TABLET PO SCH ×2 (14:45→16:00)
[2022-05-28 15:16] VITALS: BP 83/59
[2022-05-28] MEDS: NS IV 1000 ML 1,000 ML IV SCH ×2 (16:42→23:51)
[2022-05-28 16:58] VITALS: BP 86/62
[2022-05-28] MEDS: NIRMATRELVIR/RITONAVIR (PAXLOVID) TABLET PO SCH (17:31)
[2022-05-28 19:49] VITALS: BP 100/68
[2022-05-28] MEDS ORDERED: IBUPROFEN 600 MG (MOTRIN) TAB PO PRN (20:00)
[2022-05-28] MEDS ORDERED: ACETAMINOPHEN 500 MG TAB (TYLENOL) ONE (21:11)
[2022-05-28] MEDS: ACETAMINOPHEN 500 MG TAB (TYLENOL) PO PRN (21:27)
[2022-05-28 23:45] VITALS: BP 78/50
[2022-05-28 23:52] VITALS: BP 90/53
[2022-05-29 03:30] VITALS: BP 103/69
[2022-05-29 07:01] LABS: HEMATOCRIT 35 % (35-52); HEMOGLOBIN 12.2 g/dL (11.5-16.0); MEAN CORPUSCULAR HEMOGLOBIN 30 pg (25-34); MEAN CORPUSCULAR HGB CONC 35 g/dL (32-36); MEAN CORPUSCULAR VOLUME 84 fL (80-99); MEAN PLATELET VOLUME 11.2 fL (9.0-12.2); PLATELET COUNT 158 10^3/uL (130-400); WHITE BLOOD COUNT 9.6 10^3/uL (4.3-11.0)
[2022-05-29 07:13] LABS: POTASSIUM 3.7 MMOL/L (3.6-5.0)
[2022-05-29 07:15] LABS: CALCIUM 7.9 MG/DL (8.5-10.1)
[2022-05-29 07:19] LABS: CREATININE SERUM 0.67 MG/DL (0.60-1.30)
[2022-05-29 07:52] VITALS: BP 109/75
[2022-05-29] MEDS: NS IV 1000 ML 1,000 ML IV SCH ×2 (08:56→15:35)
[2022-05-29] MEDS: NIRMATRELVIR/RITONAVIR (PAXLOVID) TABLET PO SCH ×2 (10:16→20:28)
--- NOTE | 2022-05-29 10:44 | Consultation-Cardiology ---
HPI-Cardiology Cardiology Consultation Date of Consultation 05/29/22 Date of Admission Time Seen by Provider: 10:39 Indication: Shocks from the defibrillator HPI 26-year-old lady with history of palpitation, history of multiple episodes of polymorphic ventricular tachycardia and sudden with prolonged QT syndrome, had a defibrillator placed by Dr. Hernández and has been following with them. Patient had fever, shortness of breath. Came into the hospital due to the feeling ill. Part of the work-up showed that her defibrillator is malfunctioning and she received a treatment with NT tacky pacing and shocks from the defibrillator. She was diagnosed with COVID-19 infection. On my evaluation she was laying down in bed, comfortable, feeling better. No new complaint. Home Medications & Allergies Allergies: Coded Allergies: No Known Drug Allergies (Unverified , 05/04/21) Home Medication List Reviewed: Yes YGO-Ixkezj-Fiohxl Hx Patient Social History Marital Status: Have you traveled recently?: No Alcohol Use?: No Immunizations Up To Date Tetanus Booster (TDap): Less than 5yrs Date of Influenza Vaccine: Apr 24, 2021 Past Medical History Discussed below Family Medical History Significant Family History: No Pertinent Family Hx Review of Systems-General Review of Systems Constitutional: fever, malaise, weakness EENTM: see HPI, no symptoms reported Respiratory: no symptoms reported, see HPI Cardiovascular: see HPI Gastrointestinal: no symptoms reported, see HPI Genitourinary: no symptoms reported, see HPI Musculoskeletal: no symptoms reported Skin: no symptoms reported Psychiatric/Neurological: No Symptoms Reported Reviewed Test Results Reviewed Test Results Lab Laboratory Tests Test 05/29/22 06:50 Range/Units White Blood Count 9.6 4.3-11.0 10^3/uL Red Blood Count 4.11 3.80-5.11 10^6/uL Hemoglobin 12.2 11.5-16.0 g/dL Hematocrit 35 35-52 % Mean Corpuscular Volume 84 80-99 fL Mean Corpuscular Hemoglobin 30 25-34 pg Mean Corpuscular Hemoglobin Concent 35 32-36 g/dL Red Cell Distribution Width 12.7 10.0-14.5 % Platelet Count 158 130-400 10^3/uL Mean Platelet Volume 11.2 9.0-12.2 fL Sodium Level 139 135-145 MMOL/L Potassium Level 3.7 3.6-5.0 MMOL/L Chloride Level 111 H 98-107 MMOL/L Carbon Dioxide Level 22 21-32 MMOL/L Anion Gap 6 5-14 MMOL/L Blood Urea Nitrogen 6 L 7-18 MG/DL Creatinine 0.67 0.60-1.30 MG/DL Estimat Glomerular Filtration Rate 124 BUN/Creatinine Ratio 9 Glucose Level 98 70-105 MG/DL Calcium Level 7.9 L 8.5-10.1 MG/DL Physical Exam Physical Exam Vital Signs Vital Signs - First Documented 05/28/22 05/28/22 08:58 14:40 Temp 38.4 Pulse 123 Resp 20 B/P (MAP) 128/66 (86) Pulse Ox 97 O2 Delivery Room Air Capillary Refill : Less Than 3 Seconds Height, Weight, BMI Height: '" Weight: lbs. oz. kg; 25.00 BMI Method: General Appearance: No Apparent Distress, WD/WN HEENT: PERRL/EOMI, Normal ENT Inspection, Pharynx Normal Neck: Normal Inspection, Non Tender, Supple Respiratory: Chest Non Tender, Lungs Clear, Normal Breath Sounds, No Accessory Muscle Use, No Respiratory Distress Cardiovascular: No Murmur, Normal Peripheral Pulses, Tachycardia Gastrointestinal: Normal Bowel Sounds, No Organomegaly, Non Tender, Soft Extremity: Normal Capillary Refill, Normal Inspection, Normal Range of Motion, Non Tender, No Calf Tenderness Neurologic/Psychiatric: Alert, Oriented x3, No Motor/Sensory Deficits Skin: Normal Color, Warm/Dry Lymphatic: No Adenopathy A/P-Cardiology Admission Diagnosis COVID-19 infection Ventricular tachycardia Permanent pacemaker Palpitation. Assessment/Plan COVID-19 infection, fever, generalized fatigue. Managed by medical team History of polymorphic V. tach with sudden , had multiple episodes in the past Has been following with Dr. Hernández in [facility], has dual-chamber pacemaker/ICD. ICD is malfunctioning, ventricular lead was noted to be in the atrium. Need repositioning Patient received multiple shocks due to inappropriately reading sinus tach ycardia. Patient is awaiting for transfer to [facility] for management of her defibrillator. I had a discussion with Dr. Lucas, recommendation to keep her in the hospital until her COVID-19 resolved then transfer her to [place] for adjustment of her ICD. Palpitation and chest pain secondary to shocks from the defibrillator. YOSELIN DISLA MD May 29, 2022 10:44
[2022-05-29 11:39] VITALS: BP 101/71
--- NOTE | 2022-05-29 12:49 | History & Physical ---
HPI History of Present Illness: 26 yo female came to ER due to fever, not feeling well. Has history of long QT syndrome and torsades and multiple episodes requiring defibrillation. Has implanted defibrillator, however, on interrogation, had been shocked but for sinus tachycardia due to malposition of device. She was found to have COVID, so cannot have device replaced at this time. She denies concerns this morning, denies chest pain, shortness of breath. Source: patient Exam Limitations: language barrier Date seen by provider: May 29, 2022 Time Seen by Provider: 11:50 Attending Physician Kathy Dawkins MD PCP Admitting Physician: Kathy Dawkins MD Attending Physician: Kathy Dawkins MD Consult Date of Admission May 28, 2022 at 13:51 Home Medications Home Medications Reviewed patient Home Medication Reconciliation performed by pharmacy medication reconciliations ergonomics technician and/or nursing. Patients Allergies have been reviewed. Allergies Coded Allergies: No Known Drug Allergies (Unverified , 05/04/21) SKF-Tauehi-Dyewdy Hx Patient Social History Marrital Status: Alcohol Use?: No Have you traveled recently?: No Immunizations Up To Date Tetanus Booster (TDap): Less than 5yrs Influenza Vaccine Up-to-Date: No; Not Current Past Medical History PMHx: Long QT syndrome SurgHx: Denies Family Medical History Significant Family History: No Pertinent Family Hx Review of Systems ([facility]) Constitutional: fever, malaise Respiratory: No short of breath Cardiovascular: No chest pain Musculoskeletal: no symptoms reported Skin: no symptoms reported Psychiatric/Neurological: No Symptoms Reported Reviewed Test Results Reviewed Test Results Lab Laboratory Tests Test 05/28/22 09:05 05/28/22 09:07 05/28/22 09:26 05/29/22 06:50 Range/Units Influenza Type A (RT-PCR) Not Detected Not Detecte Influenza Type B (RT-PCR) Not Detected Not Detecte SARS-CoV-2 RNA (RT-PCR) Detected H Not Detecte White Blood Count 15.1 H 9.6 4.3-11.0 10^3/uL Red Blood Count 4.83 4.11 3.80-5.11 10^6/uL Hemoglobin 14.4 12.2 11.5-16.0 g/dL Hematocrit 40 35 35-52 % Mean Corpuscular Volume 83 84 80-99 fL Mean Corpuscular Hemoglobin 30 30 25-34 pg Mean Corpuscular Hemoglobin Concent 36 35 32-36 g/dL Red Cell Distribution Width 12.3 12.7 10.0-14.5 % Platelet Count 212 158 130-400 10^3/uL Mean Platelet Volume 11.1 11.2 9.0-12.2 fL Immature Granulocyte % (Auto) 0 % Neutrophils (%) (Auto) 89 H 42-75 % Lymphocytes (%) (Auto) 6 L 12-44 % Monocytes (%) (Auto) 5 0-12 % Eosinophils (%) (Auto) 0 0-10 % Basophils (%) (Auto) 0 0-10 % Neutrophils # (Auto) 13.4 H 1.8-7.8 10^3/uL Lymphocytes # (Auto) 0.8 L 1.0-4.0 10^3/uL Monocytes # (Auto) 0.7 0.0-1.0 10^3/uL Eosinophils # (Auto) 0.0 0.0-0.3 10^3/uL Basophils # (Auto) 0.0 0.0-0.1 10^3/uL Immature Granulocyte # (Auto) 0.1 0.0-0.1 10^3/uL Neutrophils % (Manual) 81 % Lymphocytes % (Manual) 12 % Monocytes % (Manual) 5 % Band Neutrophils 2 % Blood Morphology Comment NORMAL Sodium Level 134 L 139 135-145 MMOL/L Potassium Level 3.4 L 3.7 3.6-5.0 MMOL/L Chloride Level 102 111 H 98-107 MMOL/L Carbon Dioxide Level 22 22 21-32 MMOL/L Anion Gap 10 6 5-14 MMOL/L Blood Urea Nitrogen 10 6 L 7-18 MG/DL Creatinine 0.96 0.67 0.60-1.30 MG/DL Estimat Glomerular Filtration Rate 84 124 BUN/Creatinine Ratio 10 9 Glucose Level 114 H 98 70-105 MG/DL Lactic Acid Level 1.55 0.50-2.00 MMOL/L Calcium Level 8.8 7.9 L 8.5-10.1 MG/DL Corrected Calcium 8.6 8.5-10.1 MG/DL Magnesium Level 2.0 1.6-2.4 MG/DL Total Bilirubin 1.0 0.1-1.0 MG/DL Aspartate Amino Transf (AST/SGOT) 21 5-34 U/L Alanine Aminotransferase (ALT/SGPT) 15 0-55 U/L Alkaline Phosphatase 82 40-136 U/L Total Protein 8.8 H 6.4-8.2 GM/DL Albumin 4.3 3.2-4.5 GM/DL Urine Color YELLOW Urine Clarity SL CLOUDY Urine pH 6.0 5-9 Urine Specific [place] 1.025 H 1.016-1.022 Urine Protein TRACE H NEGATIVE Urine Glucose (UA) NEGATIVE NEGATIVE Urine Ketones 1+ H NEGATIVE Urine Nitrite NEGATIVE NEGATIVE Urine Bilirubin NEGATIVE NEGATIVE Urine Urobilinogen 2.0 < = 1.0 MG/DL Urine Leukocyte Esterase 2+ H NEGATIVE Urine RBC (Auto) 3+ H NEGATIVE Urine RBC 10-25 H /HPF Urine WBC 10-25 H /HPF Urine Squamous Epithelial Cells 5-10 /HPF Urine Crystals PRESENT H /LPF Urine Amorphous Sediment FEW BRANDEN URATES H /LPF Urine Bacteria MODERATE H /HPF Urine Casts NONE /LPF Urine Mucus SMALL H /LPF Urine Culture Indicated YES Urine Test NEGATIVE NEGATIVE Radiology CXR 05/28/22 No acute process Physical Exam-([facility]) Physical Exam Vital Signs VS - Last 72 Hours, by Label 05/28/22 05/28/22 05/28/22 05/28/22 08:58 14:40 14:42 15:16 Temp 38.4 37.0 Pulse 123 85 91 92 Resp 20 18 B/P (MAP) 128/66 (86) 89/56 83/59 (67) Pulse Ox 97 97 96 O2 Delivery Room Air Room Air 05/28/22 05/28/22 05/28/22 05/28/22 15:46 16:58 19:00 19:49 Temp 37.2 37.7 Pulse 96 106 92 Resp 18 18 B/P (MAP) 86/62 (70) 100/68 (79) Pulse Ox 100 98 O2 Delivery Room Air Room Air Room Air 05/28/22 05/28/22 05/28/22 05/29/22 20:20 23:45 23:52 01:00 Temp 36.8 Pulse 68 71 84 Resp 20 18 B/P (MAP) 78/50 (59) 90/53 (65) Pulse Ox 98 97 98 O2 Delivery Room Air Room Air Room Air 1/3/05/29/22 05/29/22 05/29/22 03:30 07:16 07:52 11:39 Temp 36.2 37.0 36.8 Pulse 81 79 84 87 Resp 20 18 18 B/P (MAP) 103/69 (80) 109/75 (86) 101/71 (81) Pulse Ox 98 97 100 O2 Delivery Room Air Room Air Room Air Capillary Refill : Less Than 3 Seconds General Appearance: WD/WN, no apparent distress Respiratory: no respiratory distress Extremities: no pedal edema Neurologic/Psychiatric: alert, normal mood/affect Skin: normal color Assessment/Plan Assessment/Plan Admission Status: Inpatient Order (span 2 midnights) Reason for Inpatient Admission: COVID with underlying severe cardiovascular risk (1) COVID-19 Status: Acute Assessment & Plan: Mildly symptomatic with fever and sinus tachycardia, no hypoxia. Started Paxlovid. (2) Disorder of defibrillator function Status: Acute Qualifiers: Qualified Codes: T82.198A - Other mechanical complication of other cardiac electronic device, initial encounter (3) Long QT syndrome Status: Chronic Assessment & Plan: s/p defibrillator placement which is now malpositioned, will need replaced, cannot be done until COVID not an issue, her primary Clinical Research Scientist recommending hospitalization until this is done due to history of multiple episodes requiring shock, so concern for sending home without defibrillator. KATHY DAWKINS MD May 29, 2022 12:49
[2022-05-29 16:14] VITALS: BP 108/71
[2022-05-29] MEDS ORDERED: ACET-2267 PO (16:18)
[2022-05-29] MEDS ORDERED: METO-352 PO (16:18)
[2022-05-29 19:34] VITALS: BP 102/67
[2022-05-30 00:49] VITALS: BP 111/73
[2022-05-30] MEDS: NS IV 1000 ML 1,000 ML IV SCH ×4 (00:49→16:20)
[2022-05-30 04:32] VITALS: BP 111/77
[2022-05-30 08:26] VITALS: BP 115/75
[2022-05-30] MEDS: NIRMATRELVIR/RITONAVIR (PAXLOVID) TABLET PO SCH ×2 (08:57→20:28)
--- NOTE | 2022-05-30 09:21 | Cardiology Progress Note ---
Subjective Date Seen by Provider: May 30, 2022 Time Seen by Provider: 08:55 Subjective/Events-last exam Patient is in bed, non new complaints. Complaining of generalized fatigue. Focused Exam Lactate Level 05/28/22 09:07: Lactic Acid Level 1.55 Objective-Cardiology Exam Last Set of Vital Signs Vital Signs 05/30/22 11:38 Temp 37.0 Pulse 85 Resp 20 B/P (MAP) 96/69 (78) Pulse Ox 99 O2 Delivery Room Air I&O Intake and Output 05/30/22 00:00 Intake Total 4050 ml Balance 4050 ml Intake Oral 2050 ml IV Total 2000 ml # Voids 7 General: Alert, Oriented X3 HEENT: Atraumatic, PERRLA Lungs: Clear to Auscultation, Normal Air Movement Heart: Regular Rate, Normal S1, Normal S2 Abdomen: Soft, No Tenderness Extremities: No Clubbing, No Edema Neuro: Normal Speech, Cranial Nerves 3-12 NL Psych/Mental Status: Mental Status NL, Mood NL A/P-Cardiology Admission Diagnosis COVID-19 infection Ventricular tachycardia Permanent pacemaker Palpitation. Assessment/Plan COVID-19 infection, fever, generalized fatigue. Managed by medical team History of polymorphic V. tach with sudden , had multiple episodes in the past Has been following with Dr. Hernández in [facility], has dual-chamber pacemaker/ICD. ICD is malfunctioning, ventricular lead was noted to be in the atrium. Need repositioning Patient received multiple shocks due to inappropriately reading sinus tachycardia. Patient is awaiting for transfer to [facility] for management of her defibrillator. Had discussion with Dr. Lucas, recommendation to keep her in the hospital until her COVID-19 resolved then transfer her to [place] for adjustment of her ICD. Palpitation and chest pain secondary to shocks from the defibrillator. Supervisory-Addendum Brief Supervisory Addendum Participated in pt care: history, MDM, physical Personally performed: exam, history, MDM Care discussed with: HERMANN Results interpretation: Verified all documentation Notes: Patient was seen and evaluated with Isai, examination performed, management plan was discussed, agree with the current scribed note, I made few changes to the note using Italic font Patient was seen at bedside, laying down comfortably I am planning to proceed with LifeVest and then discharged the patient and arrange for follow-up as an outpatient. ISAI CUETO May 30, 2022 09:21 YOSELIN DISLA MD May 30, 2022 13:38
[2022-05-30 11:38] VITALS: BP 96/69
--- NOTE | 2022-05-30 11:43 | Progress Note ---
Subjective Subjective/Events-last exam Pt denies concerns. Just wondering when she can go to [place]. Focused Exam Lactate Level 05/28/22 09:07: Lactic Acid Level 1.55 Objective Exam Last Set of Vital Signs Vital Signs Date Time Temp Pulse Resp B/P (MAP) Pulse Ox O2 Delivery O2 Flow Rate FiO2 05/30/22 11:38 37.0 85 20 96/69 (78) 99 Room Air Capillary Refill : Less Than 3 Seconds I&O Intake and Output 05/30/22 00:00 Intake Total 4050 ml Balance 4050 ml Intake Oral 2050 ml IV Total 2000 ml # Voids 7 General: Alert, No Acute Distress Lungs: Clear to Auscultation, Normal Air Movement Heart: Regular Rate, No Murmurs Neuro: Normal Speech Psych/Mental Status: Mood NL Results/Procedures Lab Microbiology 05/28/22 Urine Culture - Final, Complete >=3 Gram Positive Isolates 05/28/22 Blood Culture - Preliminary, Resulted No growth Radiology CXR 05/28/22 No acute process Assessment/Plan Assessment/Plan (1) COVID-19 Status: Acute Assessment & Plan: Mildly symptomatic with fever and sinus tachycardia, no hypoxia. Started Paxlovid. (2) Disorder of defibrillator function Status: Acute Qualifiers: Qualified Codes: T82.198A - Other mechanical complication of other cardiac electronic device, initial encounter (3) Long QT syndrome Status: Chronic Assessment & Plan: s/p defibrillator placement which is now malpositioned, will need replaced, cannot be done until COVID not an issue, her primary Rn Telemetry recommending hospitalization until this is done due to history of multiple episodes requiring shock, so concern for sending home without defibrillator. KATHY MAYO MD May 30, 2022 11:42
[2022-05-30 16:58] VITALS: BP 103/64
[2022-05-30 20:16] VITALS: BP 96/65
[2022-05-31 00:06] VITALS: BP 107/74
[2022-05-31] MEDS: NS IV 1000 ML 1,000 ML IV SCH (01:13)
[2022-05-31 04:14] VITALS: BP 102/71
[2022-05-31 08:15] VITALS: BP 104/68
--- NOTE | 2022-05-31 08:28 | Cardiology Progress Note ---
Subjective Date Seen by Provider: May 31, 2022 Time Seen by Provider: 08:26 Subjective/Events-last exam Patient asleep in bed, easily awakens to answer questions. No complaints. Focused Exam Lactate Level Objective-Cardiology Exam Last Set of Vital Signs Vital Signs 05/31/22 08:15 Temp 36.2 Pulse 71 Resp 18 B/P (MAP) 104/68 (80) Pulse Ox 100 O2 Delivery Room Air I&O Intake and Output 05/31/22 00:00 Intake Total 5150 ml Balance 5150 ml Intake Oral 2150 ml IV Total 3000 ml # Voids 8 # Bowel Movements 3 General: Alert, No Acute Distress HEENT: Atraumatic, PERRLA Lungs: Clear to Auscultation, Normal Air Movement Heart: Regular Rate, Normal S1, Normal S2 Abdomen: Soft, No Tenderness Extremities: No Clubbing, No Edema Neuro: Normal Speech, Cranial Nerves 3-12 NL Psych/Mental Status: Mood NL A/P-Cardiology Admission Diagnosis COVID-19 infection Ventricular tachycardia Permanent pacemaker Palpitation. Assessment/Plan COVID-19 infection, fever, generalized fatigue. Managed by medical team History of polymorphic V. tach with sudden , had multiple episodes in the past Has been following with Dr. Hernández in [facility], has dual-chamber pacemaker/ICD. ICD is malfunctioning, ventricular lead was noted to be in the atrium. Need repositioning Patient received multiple shocks due to inappropriately reading sinus tachycardia. ICD has been turned off at this time. Patient is awaiting for transfer to [facility] for management of her defibrillator. LifeVest ordered yesterday. Will plan for discharge once Life Vest is place and will need to arrange ICD repositioning with Dr. Hernández as outpatient Palpitation and chest pain secondary to shocks from the defibrillator. Patient is still in isolation, evaluated today Awaiting LifeVest No changes are recommended ISAI CUETO May 31, 2022 08:28 YOSELIN DISLA MD May 31, 2022 11:50
[2022-05-31] MEDS: NIRMATRELVIR/RITONAVIR (PAXLOVID) TABLET PO SCH ×2 (09:15→20:47)
[2022-05-31 11:52] VITALS: BP 111/81
--- NOTE | 2022-05-31 12:36 | Progress Note ---
Subjective Subjective/Events-last exam Afebrile, no acute events. Denies concerns, except isn't sure she can pay for lifevest. Objective Exam Last Set of Vital Signs Vital Signs Date Time Temp Pulse Resp B/P (MAP) Pulse Ox O2 Delivery O2 Flow Rate FiO2 05/31/22 11:52 36.2 88 18 111/81 (91) 100 Room Air Capillary Refill : Less Than 3 Seconds I&O Intake and Output 05/31/22 00:00 Intake Total 5150 ml Balance 5150 ml Intake Oral 2150 ml IV Total 3000 ml # Voids 8 # Bowel Movements 3 General: Alert, No Acute Distress Psych/Mental Status: Mood NL Results/Procedures Lab Microbiology 05/28/22 Urine Culture - Final, Complete >=3 Gram Positive Isolates 05/28/22 Blood Culture - Preliminary, Resulted No growth Radiology CXR 05/28/22 No acute process Assessment/Plan Assessment/Plan (1) COVID-19 Status: Acute Assessment & Plan: Mildly symptomatic with fever and sinus tachycardia, no hypoxia. Started Paxlovid. (2) Disorder of defibrillator function Status: Acute Qualifiers: Qualified Codes: T82.198A - Other mechanical complication of other cardiac electronic device, initial encounter (3) Long QT syndrome Status: Chronic Assessment & Plan: s/p defibrillator placement which is now malpositioned, will need replaced, cannot be done until COVID not an issue, her primary Airport Operations Crew Member recommending hospitalization until this is done due to history of multiple episodes requiring shock, so concern for sending home without defibrillator. 05/31 working on getting LifeVest so she can be safely discharged until procedure can be done. KATHY MAYO MD May 31, 2022 12:36
[2022-05-31 15:40] VITALS: BP 125/89
[2022-05-31] MEDS ORDERED: NIRM1TAB PO (16:32)
[2022-05-31] MEDS ORDERED: RELABEL FOR HOME USE MC SCH (16:45)
[2022-05-31 19:13] VITALS: BP 125/89
[2022-06-01] VITALS (7 sets, daily range): BP systolic 91–110; BP diastolic 58–72
[2022-06-01] MEDS: NIRMATRELVIR/RITONAVIR (PAXLOVID) TABLET PO SCH ×2 (09:44→19:54)
--- NOTE | 2022-06-01 14:10 | Progress Note ---
Subjective Subjective/Events-last exam Afebrile, denies concerns. Had planned to d/c yesterday with Life Vest, but her Waiter/Waitress Second Class did not want her to go with life vest. Unfortunately, there are no beds available at [facility] at this time. Objective Exam Last Set of Vital Signs Vital Signs Date Time Temp Pulse Resp B/P (MAP) Pulse Ox O2 Delivery O2 Flow Rate FiO2 06/01/22 13:00 92 06/01/22 11:12 36.9 18 100/68 (79) 98 Room Air 06/01/22 09:35 0.00 Capillary Refill : Less Than 3 Seconds I&O Intake and Output 06/01/22 00:00 Intake Total 3170 ml Balance 3170 ml Intake Oral 2170 ml IV Total 1000 ml # Voids 7 General: No Acute Distress Lungs: Other (no respiratory distress) Psych/Mental Status: Mood NL Results/Procedures Lab Microbiology 05/28/22 Urine Culture - Final, Complete >=3 Gram Positive Isolates 05/28/22 Blood Culture - Preliminary, Resulted No growth Radiology CXR 05/28/22 No acute process Assessment/Plan Assessment/Plan (1) COVID-19 Status: Acute Assessment & Plan: Mildly symptomatic with fever and sinus tachycardia, no hypoxia. Started Paxlovid. (2) Disorder of defibrillator function Status: Acute Qualifiers: Qualified Codes: T82.198A - Other mechanical complication of other cardiac electronic device, initial encounter (3) Long QT syndrome Status: Chronic Assessment & Plan: s/p defibrillator placement which is now malpositioned, will need replaced, cannot be done until COVID not an issue, her primary Waiter/Waitress Second Class recommending hospitalization until this is done due to history of multiple episodes requiring shock, so concern for sending home without defibrillator. 05/31 working on getting LifeVest so she can be safely discharged until procedure can be done. 06/01 primary Waiter/Waitress Second Class does not want her discharged with LifeVest, awaiting availability of bed at [facility], currently on diversion, will need to call again daily. KATHY MAYO MD Jun 01, 2022 14:10
--- NOTE | 2022-06-01 19:11 | Cardiology Progress Note ---
Progress Note-Cardiology Events since last exam Date Seen by Provider: Jun 01, 2022 Time Seen by Provider: 19:06 Events since last exam We are following her due to defibrillator malfunction. She remains in the COVID isolation unit. She denies dyspnea or cough. She wants to know when she can go home. She denies chest pain, palpitations, syncope, or ankle edema. Certain portions of this document may have been dictated utilizing voice recognition technology. Inherent to this technology, typographical and grammatical errors may exist. As much as I am diligent to identify and correct these mistakes, some errors may remain in the document. Vitals Last set of Vitals Signs Vital Signs 06/01/22 06/01/22 06/01/22 09:35 11:12 16:01 Temp 36.2 Pulse 72 Resp 18 B/P (MAP) 105/72 (83) Pulse Ox 98 O2 Delivery Room Air O2 Flow Rate 0.00 Exam Vital Signs Vital Signs Date Time Temp Pulse Resp B/P (MAP) Pulse Ox O2 Delivery O2 Flow Rate FiO2 06/01/22 16:01 36.2 72 18 105/72 (83) 98 06/01/22 11:12 Room Air 06/01/22 09:35 0.00 Physical Exam Due to the patient's COVID status, I spoke with the patient from the doorway. General: The patient is breathing spontaneously. HENT: Normocephalic. Atraumatic. Skin: There is no pallor. Neurologic: Oriented x3. Cranial nerves III through XII grossly intact. Moving all 4 extremities. Psychiatric: Appears cooperative. Diagnosis/Problems Diagnosis/Problems (1) Disorder of defibrillator function Status: Acute Assessment & Plan: She had a defibrillator placed in December and the right ventricular lead has prolapsed into the right atrium. She then had frequent shocks due to missensing. She is now wearing LifeVest. Her knot borer from [facility] is requested she be transferred to their facility for lead revision of the defibrillator. However, due to her COVID infection and the bed situation at [place], she cannot be transferred at this time. I have asked her nurse to investigate other hospitals tomorrow. We could consider discharging her with a LifeVest although the knot borer apparently does not want her to go home with a LifeVest. (2) Long QT syndrome Status: Chronic Assessment & Plan: She has had polymorphic ventricular tachycardia in the past. She is not currently on any antiarrhythmic drugs. (3) COVID-19 Status: Acute Assessment & Plan: This is being managed by the primary team. The COVID infection is making management difficult due to difficulty transferring to a facility that can revise the defibrillator lead. Problem Qualifiers (1) Disorder of defibrillator function: Encounter type: initial encounter Qualified Codes: T82.198A - Other mecha nical complication of other cardiac electronic device, initial encounter MALINA FERNANDEZ JR, MD Jun 01, 2022 19:11
[2022-06-02 03:53] VITALS: BP 95/61
[2022-06-02 07:50] VITALS: BP 83/49
[2022-06-02] MEDS: NIRMATRELVIR/RITONAVIR (PAXLOVID) TABLET PO SCH (08:48)
[2022-06-02 11:26] VITALS: BP 93/60
--- NOTE | 2022-06-02 12:02 | Progress Note - Hospitalist ---
Subjective HPI/CC On Admission Date Seen by Provider: Jun 02, 2022 Time Seen by Provider: 11:59 Subjective/Events-last exam Patient voices no complaints wishes to go home. She has not been aware previous defibrillator discharges has had no syncope chest pain lightheadedness or dyspnea on exertion. Objective Exam Vital Signs Vital Signs Date Time Temp Pulse Resp B/P (MAP) Pulse Ox O2 Delivery O2 Flow Rate FiO2 06/02/22 11:26 36.9 69 14 93/60 (71) 98 Room Air 06/01/22 09:35 0.00 Capillary Refill : Less Than 3 Seconds General Appearance: No Apparent Distress Respiratory: Chest Non Tender, Lungs Clear, Normal Breath Sounds, No Accessory Muscle Use, No Respiratory Distress Cardiovascular: Regular Rate, Rhythm, No Edema, No Gallop, No JVD, No Murmur, Normal Peripheral Pulses Extremity: Normal Capillary Refill, Normal Inspection, Normal Range of Motion, Non Tender, No Calf Tenderness, No Pedal Edema Results/Procedures Lab Patient resulted labs reviewed. Assessment/Plan Assessment and Plan Assess & Plan/Chief Complaint (1) COVID-19 Status: Acute Assessment & Plan: Mildly symptomatic with fever and sinus tachycardia, no hypoxia. Started Paxlovid. (2) Disorder of defibrillator function Status: Acute Qualifiers: Qualified Codes: T82.198A - Other mechanical complication of other cardiac electronic device, initial encounter (3) Long QT syndrome Status: Chronic Assessment & Plan: s/p defibrillator placement which is now malpositioned, will need replaced, cannot be done until COVID not an issue, her primary High School History Teacher recommending hospitalization until this is done due to history of multiple episodes requiring shock, so concern for sending home without defibrillator. 05/31 working on getting LifeVest so she can be safely discharged until procedure can be done. 06/01 primary High School History Teacher does not want her discharged with LifeVest, awaiting availability of bed at [place], currently on diversion, will need to call again daily. 06/02 patient is finished Paxlovid no evidence for ongoing COVID infection by symptoms. [facility] is full with many people waiting in front of her. Defer to cardiology in regards to discharge management. OSMAR BARRERA MD Jun 02, 2022 12:02
--- NOTE | 2022-06-02 12:07 | Cardiology Progress Note ---
Progress Note-Cardiology Events since last exam Date Seen by Provider: Jun 02, 2022 Time Seen by Provider: 12:03 Events since last exam We are following her due to defibrillator malfunction. She denies chest discomfort, dyspnea, palpitations, syncope, or ankle edema. She wants to go home. Certain portions of this document may have been dictated utilizing voice recognition technology. Inherent to this technology, typographical and grammatical errors may exist. As much as I am diligent to identify and correct these mistakes, some errors may remain in the document. Vitals Last set of Vitals Signs Vital Signs 06/01/22 06/02/22 09:35 11:26 Temp 36.9 Pulse 69 Resp 14 B/P (MAP) 93/60 (71) Pulse Ox 98 O2 Delivery Room Air O2 Flow Rate 0.00 Exam Vital Signs Vital Signs Date Time Temp Pulse Resp B/P (MAP) Pulse Ox O2 Delivery O2 Flow Rate FiO2 06/02/22 11:26 36.9 69 14 93/60 (71) 98 Room Air 06/01/22 09:35 0.00 Physical Exam Due to the patient's COVID status, I spoke with the patient from the doorway. General: The patient is breathing spontaneously. She is laying in bed comfortably. HENT: Normocephalic. Atraumatic. Skin: There is no pallor. Neurologic: Oriented x3. Cranial nerves III through XII grossly intact. Moving all 4 extremities. Psychiatric: Appears cooperative. Diagnosis/Problems Diagnosis/Problems (1) Disorder of defibrillator function Status: Acute Assessment & Plan: She had a defibrillator placed in December 2021 and the right ventricular lead has prolapsed into the right atrium. She then had frequent shocks due to abnormal sensing and some tachycardia. She is now wearing LifeVest. Her mental health director from [facility] is requested she be transferred to their facility for lead revision of the defibrillator. However, due to her COVID infection and the bed situation at [facility], she cannot be transferred at this time. The nurse checked again today and both [facility] and [facility] in [place] are on diversion. I have a call out to an mental health director at [facility] to see if they might be able to take her in transfer. The mental health director from [facility] also recommended the patient stay in the hospital with a LifeVest until the lead revision has been completed. (2) Long QT syndrome Status: Chronic Assessment & Plan: She has had polymorphic ventricular tachycardia in the past. She is not currently on any antiarrhythmic drugs. She appears to have been taking Metroprolol succinate at home but due to low blood pressures, this has not been reordered. (3) COVID-19 virus infection Assessment & Plan: This is being managed by the primary team. The COVID infection is making management difficult due to difficulty transferring to a facility that can revise the defibrillator lead. Problem Qualifiers (1) Disorder of defibrillator function: Encounter type: initial encounter Qualified Codes: T82.198A - Other mechanical complication of other cardiac electronic device, initial encounter MALINA FERNANDEZ JR, MD Jun 02, 2022 12:07
[2022-06-02 16:31] VITALS: BP 95/60
[2022-06-02] MEDS: ACETAMINOPHEN 500 MG TAB (TYLENOL) PO PRN (16:36)
[2022-06-02 20:09] VITALS: BP 93/48
[2022-06-02 23:53] VITALS: BP 108/72
[2022-06-03 04:53] VITALS: BP 100/70
[2022-06-03 07:50] VITALS: BP 93/61
[2022-06-03] MEDS ORDERED: LIDOCAINE DRIP 500 ML IV SCH (11:30)
[2022-06-03] MEDS ORDERED: LIDOCAINE DRIP 500 ML IV ONE (11:33)
--- NOTE | 2022-06-03 11:38 | Cardiology Progress Note ---
Progress Note-Cardiology Events since last exam Date Seen by Provider: Jun 03, 2022 Time Seen by Provider: 11:35 Events since last exam I am following her due to ventricular tachycardia and malfunctioning defibrillator. This morning the nurse told me that she got report from the night nurse that the patient had received 3 shocks throughout the night from the LifeVest. When I talked to the patient, she denies receiving any shocks. At 1 point, the LifeVest did alarm but the patient pushed the button and he activated the device. She denies chest discomfort, dyspnea, palpitations, syncope, or ankle edema. Certain portions of this document may have been dictated utilizing voice recognition technology. Inherent to this technology, typographical and grammatical errors may exist. As much as I am diligent to identify and correct these mistakes, some errors may remain in the document. Vitals Last set of Vitals Signs Vital Signs 06/03/22 06/03/22 07:50 08:09 Temp 36.1 Pulse 66 Resp 18 B/P (MAP) 93/61 (72) Pulse Ox 98 O2 Delivery Room Air O2 Flow Rate 0.00 Exam Vital Signs Vital Signs Date Time Temp Pulse Resp B/P (MAP) Pulse Ox O2 Delivery O2 Flow Rate FiO2 06/03/22 08:09 98 Room Air 0.00 06/03/22 07:50 36.1 66 18 93/61 (72) Physical Exam Due to the patient's COVID status, I spoke with the patient from the doorway. She was sitting up in bed getting ready to transfer to the ambulance stretcher. General: The patient is breathing spontaneously. HENT: Normocephalic. Atraumatic. Skin: There is no pallor. Neurologic: Oriented x3. Cranial nerves III through XII grossly intact. Moving all 4 extremities. Psychiatric: Appears cooperative. Diagnosis/Problems Diagnosis/Problems (1) Long QT syndrome Status: Chronic Assessment & Plan: She has had polymorphic ventricular tachycardia in the past. She is not currently on any antiarrhythmic drugs. She appears to have been taking Metroprolol succinate at home but due to low blood pressures, this has not been reordered. I reviewed the telemetry from the past 24 hours and she had one ventricular triplet and one 5 beat run of irregular wide-complex tachycardia that could be torsades de point. I spoke to Dr. Rodríguez from [facility]. He recommends starting her on lidocaine infusion and then we will transfer her to [facility] for a defibrillator lead revision. (2) Disorder of defibrillator function Status: Acute Assessment & Plan: She had a defibrillator placed in December 2021 and the right ventricular lead has prolapsed into the right atrium. She then had frequent shocks due to abnormal sensing and some tachycardia. She is now wearing LifeVest. Her communications analyst from [facility] requested she be transferred to their facility for lead revision of the defibrillator. However, due to her COVID infection and the bed situation at [place], she cannot be transferred at this time. The nurse checked again on 06/02 and both [place] and [facility] in [place] were on diversion. I was able to coordinate transfer to [facility] for lead revision as noted above. (3) COVID-19 virus infection Assessment & Plan: This is being managed by the primary team. The COVID infection was making management difficult due to difficulty transferring to a facility that can revise the defibrillator lead. Problem Qualifiers (1) Disorder of defibrillator function: Encounter type: initial encounter Qualified Codes: T82.198A - Other mechanical complication of other cardiac electronic device, initial encounter MALINA FERNANDEZ JR, MD Jun 03, 2022 11:38
--- NOTE | 2022-06-03 12:57 | Discharge Summary ---
Diagnosis/Chief Complaint Date of Admission May 29, 2022 at 12:51 Date of Discharge Jun 03, 2022 at 11:46 Discharge Date: May 31, 2022 Primary Care Kathy Mayo MD Discharge Diagnosis (1) Long QT syndrome Status: Chronic Assessment & Plan: She has had polymorphic ventricular tachycardia in the past. She is not currently on any antiarrhythmic drugs. She appears to have been taking Metroprolol succinate at home but due to low blood pressures, this has not been reordered. I reviewed the telemetry from the past 24 hours and she had one ventricular triplet and one 5 beat run of irregular wide-complex tachycardia that could be torsades de point. I spoke to Dr. Rodríguez from [facility]. He recommends starting her on lidocaine infusion and then we will transfer her to [facility] for a defibrillator lead revision. (2) Disorder of defibrillator function Status: Acute Assessment & Plan: She had a defibrillator placed in December 2021 and the right ventricular lead has prolapsed into the right atrium. She then had frequent shocks due to abnormal sensing and some tachycardia. She is now wearing LifeVest. Her manager development from [facility] requested she be transferred to their facility for lead revision of the defibrillator. However, due to her COVID infection and the bed situation at [place], she cannot be transferred at this time. The nurse checked again on 06/02 and both [place] and [facility] in [place] were on diversion. I was able to coordinate transfer to [facility] for lead revision as noted above. (3) COVID-19 virus infection Assessment & Plan: This is being managed by the primary team. The COVID infection was making management difficult due to difficulty transferring to a facility that can revise the defibrillator lead. Discharge Summary Discharge Physical Exam Allergies: Coded Allergies: No Known Drug Allergies (Unverified , 05/04/21) Vitals & I&Os Vital Signs Date Time Temp Pulse Resp B/P (MAP) Pulse Ox O2 Delivery O2 Flow Rate FiO2 06/03/22 08:09 98 Room Air 0.00 06/03/22 07:50 36.1 66 18 93/61 (72) General Appearance: No Apparent Distress Respiratory: Chest Non Tender, Lungs Clear, Normal Breath Sounds, No Accessory Muscle Use, No Respiratory Distress Cardiovascular: Regular Rate, Rhythm, No Edema, No Gallop, No JVD, No Murmur, Normal Peripheral Pulses Hospital Course Was the Problem List Reviewed?: Yes Problem List Diagnosis/Problems Diagnosis/Problems (1) Long QT syndrome Status: Chronic Assessment & Plan: She has had polymorphic ventricular tachycardia in the past. She is not currently on any antiarrhythmic drugs. She appears to have been taking Metroprolol succinate at home but due to low blood pressures, this has not been reordered. I reviewed the telemetry from the past 24 hours and she had one ventricular triplet and one 5 beat run of irregular wide-complex tachycardia that could be torsades de point. I spoke to Dr. Rodríguez from [facility]. He recommends starting her on lidocaine infusion and then we will transfer her to [facility] for a defibrillator lead revision. (2) Disorder of defibrillator function Status: Acute Assessment & Plan: She had a defibrillator placed in December 2021 and the right ventricular lead has prolapsed into the right atrium. She then had frequent shocks due to abnormal sensing and some tachycardia. She is now wearing LifeVest. Her manager development from [facility] requested she be transferred to their facility for lead revision of the defibrillator. However, due to her COVID infection and the bed situation at [place], she cannot be transferred at this time. The nurse checked again on 06/02 and both [place] and [facility] in [place] were on diversion. I was able to coordinate transfer to [facility] for lead revision as noted above. (3) COVID-19 virus infection Assessment & Plan: This is being managed by the primary team. The COVID infection was making management difficult due to difficulty transferring to a facility that can revise the defibrillator lead. Patient received 5 days of Paxlovid but as far as I can tell Was for mostly asymptomatic infection. Dr. Stauffer did arrange for her transfer to [facility] for defibrillator lead revision. Labs (last 24 hrs) Microbiology 05/28/22 Urine Culture - Final, Complete >=3 Gram Positive Isolates 05/28/22 Blood Culture - Final, Complete No growth Patient resulted labs reviewed. Discussion & Recommendations Discharge Planning: <30 minutes discharge planning Discharge Home Medications: Active Scripts Active Paxlovid 300-100 mg Pack (Eua) (Nirmatrelvir/Ritonavir) 300 Mg (150 Mg X 2)-100 Mg Tab.ds.pk 1 Each PO BID 3 Days Reported Tylenol Extra Strength (Acetaminophen) 500 Mg Tablet 1,000 Mg PO Q8H PRN Toprol Xl (Metoprolol Succinate) 50 Mg Tab.er.24h 50 Mg PO DAILY Instructions to patient/family Please see electronic discharge instructions given to patient. Copy Copies To 1: KATHY MAYO MD Problem Qualifiers (1) Disorder of defibrillator function: Encounter type: initial encounter Qualified Codes: T82.198A - Other mechanical complication of other cardiac electronic device, initial encounter OSMAR BARRERA MD Jun 03, 2022 12:57
== END 2022-06-03 11:46 | disposition short-term general hospital (02) | DRG 308 ==
LOC: EDUNIT# 08:51 → ER 08:53 → 4TH 13:51 → OBSVTOIN 05-29 12:51
PROVIDERS: ADMIT Family Medicine; ATTEND Internal Medicine
PROC: 8E0ZXY6 Isolation (ICD-10-PCS; principal; 2022-05-28)
DX: T82.120A Displacement of cardiac electrode, initial encounter (principal); U07.1 COVID-19; I47.20 Ventricular tachycardia, unspecified; R00.2 Palpitations; I45.81 Long QT syndrome
CPT/HCPCS: 36415; 71045; 80048; 80053; 81000; 83605; 83735; 84703; 85007; 85027; 87040; 87088; 87636; 93005; 96361; 96365; G0378